=== PATIENT | female | born 1995 | race Caucasian/White ===

== ENCOUNTER 2017-12-10 19:34 | Emergency (ER) | payer OTHER ==
[~2017-12-10] VITALS: Ht 154.9 cm; Wt 55.8 kg
[2017-12-10 19:47] VITALS: Ht 154.9 cm; Wt 55.8 kg
[2017-12-10 21:00] LABS: BASOPHIL % 0.3 % (0-2); RED CELL DISTRIBUTION WIDTH 12.9 % (11.5-14.5)
[2017-12-10 21:08] LABS: PLATELET COUNT 414 x10^3mcL (130-400)
[2017-12-10 22:38] VITALS: BP 104/59
== END 2017-12-10 22:48 | disposition home or self-care (01) ==
LOC: ED 19:34
PROVIDERS: Emergency Medicine
DX: N83.202 Unspecified ovarian cyst, left side (principal); J45.909 Unspecified asthma, uncomplicated; Z88.0 Allergy status to penicillin; Z88.1 Allergy status to other antibiotic agents
CPT/HCPCS: J1885; J2405; J7030

== ENCOUNTER 2018-01-20 19:44 | Emergency (ER) | payer MEDICAID ==
[~2018-01-20] VITALS: Ht 154.9 cm; Wt 56.4 kg
[2018-01-20 19:55] VITALS: Ht 154.9 cm; Wt 56.4 kg
[2018-01-20 21:35] VITALS: BP 102/66
== END 2018-01-20 21:35 | disposition home or self-care (01) ==
LOC: ED 19:44
DX: K08.89 Other specified disorders of teeth and supporting structures (principal); R53.1 Weakness; R11.0 Nausea; J45.909 Unspecified asthma, uncomplicated; Z88.0 Allergy status to penicillin